=== PATIENT | male | born 1945 ===

== ENCOUNTER → 2020-09-12 | Outpatient (REF) | payer MEDICARE ==
[2020-09-12 19:17] LABS: BLOOD UREA NITROGEN 17 MG/DL (7-18); CALCIUM LEVEL 9.4 MG/DL (8.8-10.2); CARBON DIOXIDE LEVEL 30 MEQ/L (21-32); CHLORIDE LEVEL 109 MEQ/L (98-107); CREATININE FOR GFR 1.07 MG/DL (0.70-1.30); GLOMERULAR FILTRATION RATE > 60.0 (>42); GLUCOSE, FASTING 95 MG/DL (70-100); POTASSIUM SERUM 4.6 MEQ/L (3.5-5.1); PROSTATIC SPECIFIC AG MONITOR 0.72 NG/ML (< 4.00); SODIUM LEVEL 142 MEQ/L (136-145)
== END ==
LOC: M LABDRAWC 18:39
DX: R53.83 Other fatigue (principal); Z12.5 Encounter for screening for malignant neoplasm of prostate

== ENCOUNTER → 2022-12-04 | Outpatient (REF) | payer MEDICARE, OTHER ==
[2022-12-04 19:55] LABS: URIC ACID 6.1 MG/DL (3.7-9.2)
[2022-12-04 19:56] LABS: ALBUMIN 3.5 G/DL (3.2-5.2); ALKALINE PHOSPHATASE 85 U/L (46-116); ALT/SGPT 15 U/L (7.0-40); AST/SGOT < 8 U/L (<34); BLOOD UREA NITROGEN 25 MG/DL (9-23); CALCIUM LEVEL 9.8 MG/DL (8.3-10.6); CARBON DIOXIDE LEVEL 25 MMOL/L (20-31); CHLORIDE LEVEL 107 MMOL/L (98-107); CREATININE FOR GFR 0.92 MG/DL (0.70-1.30); GLOMERULAR FILTRATION RATE > 60.0 (>42); GLUCOSE, FASTING 133 MG/DL (74-106); SODIUM LEVEL 141 MMOL/L (136-145); TOTAL PROTEIN 6.1 G/DL (5.7-8.2)
[2022-12-04 19:58] LABS: RHEUMATOID FACTOR QUANT 4.7 IU/ML (<14)
[2022-12-04 19:59] LABS: HEMATOCRIT 42.6 % (42.0-52.0); HEMOGLOBIN 13.7 g/dl (13.5-17.5); MEAN CORPUSCULAR HEMOGLOBIN 31.1 pg (27.0-33.0); MEAN CORPUSCULAR HGB CONC 32.2 g/dl (32.0-36.5); MEAN CORPUSCULAR VOLUME 96.6 fl (80.0-96.0); PLATELET COUNT, AUTOMATED 264 10^3/uL (150-450); RED BLOOD COUNT 4.41 10^6/uL (4.30-6.10); WHITE BLOOD COUNT 11.8 10^3/uL (4.0-10.0)
[2022-12-04 20:08] LABS: ERYTHROCYTE SEDIMENTATION RATE 24 mm/hr (0-20)
== END ==
LOC: M LABDRAWC 16:47
PROVIDERS: ATTEND Internal Medicine Rheumatology
DX: D89.89 Other specified disorders involving the immune mechanism, not elsewhere classified (principal); R70.0 Elevated erythrocyte sedimentation rate; Z11.1 Encounter for screening for respiratory tuberculosis; K75.9 Inflammatory liver disease, unspecified